=== PATIENT | female | born 1980 | race African-American/Black ===

== ENCOUNTER 2019-02-03 14:53 | Emergency (ER) | payer MEDICARE ==
[2019-02-03] MEDS ORDERED: NORMAL SALINE 1000 ML 1,000 ML IV ONE ×2 (15:14→17:23)
[2019-02-03] MEDS ORDERED: ACETAMINOPHEN 325 MG TABLET PO ONE (15:14)
--- NOTE | 2019-02-03 15:21 | ER Document Report ---
ED Medical Screen (RME) - General Chief Complaint: Nausea/Vomiting Stated Complaint: VOMITING,DIZZINESS,WEAKNESS Time Seen by Provider: 02/03/19 15:14 Mode of Arrival: Wheelchair Information source: Patient Notes: 38-year-old female presented to ED for abdominal pain nausea vomiting and a temperature of 95.1 rectally at this time. I have tried multiple times to get a oral temperature and it is 95 and below. The rectal temp was 95.1. Patient is alert oriented respirations regular and unlabored speaking in full sentences. She states she has been sick for about 3 or 4 days. She states she has been nausea and vomiting for 3 to 4 days. She states she does have a history of anemia adrenal insufficiency lupus diabetes she does have insulin with her low calcium bile duct stents gallbladder removal enlarged heart valve and a leaky heart valve not sure which and she does not smoke or drink but she does use marijuana. I have greeted and performed a rapid initial assessment of this patient. A comprehensive ED assessment and evaluation of the patient, analysis of test results and completion of medical decision making process will be conducted by an additional ED providers. Physical Exam - Vital signs Vitals: Temp Pulse Resp BP Pulse Ox 95.1 F L 84 18 97/67 L 100 02/03/19 15:00 02/03/19 15:00 02/03/19 15:00 02/03/19 15:00 02/03/19 15:00 Course - Vital Signs Vital signs: Temp Pulse Resp BP Pulse Ox 95.1 F L 84 18 97/67 L 100 02/03/19 15:00 02/03/19 15:00 02/03/19 15:00 02/03/19 15:00 02/03/19 15:00
--- NOTE | 2019-02-03 16:15 | ER Document Report ---
ED General - General Chief Complaint: Nausea/Vomiting Stated Complaint: VOMITING,DIZZINESS,WEAKNESS Time Seen by Provider: 02/03/19 15:14 Mode of Arrival: Wheelchair Notes: Patient is a 38-year-old female with multiple medical problems including Max's disease, type 1 diabetes mellitus that presents to the emergency department for chief complaint of nausea, vomiting, overall not feeling well. Patient states she is been having these symptoms for almost a week now, she did have a syncopal episode earlier today, so she decided come to the emergency department to be evaluated. She states she may have missed a few doses of her home medications including her insulin, and her hydrocortisone. She is not sure if her sugars been running high or not. She denies having any abdominal pain at this time, has been urinating more frequently and more thirsty but also did not have much of an appetite. Patient reports that she is in town visiting from [place], and she gets all of her care in [place]. Past Medical History: Adrenal insufficiency, type 1 diabetes Past Surgical History: Cholecystectomy, bile duct stent Social History: Denies current tobacco, alcohol or drug use. Family History: Reviewed and noncontributory for presenting illness Allergies: Reviewed, see documented allergy list. REVIEW OF SYSTEMS: Other than noted above, the 12 point review of systems was reviewed with the patient and were negative, all pertinent findings are included in the HPI. PHYSICAL EXAMINATION: Vital signs reviewed, nursing noted reviewed. GENERAL: Patient appears uncomfortable, but in no acute distress. HEAD: Atraumatic, normocephalic. EYES: Eyes appear normal, extraocular movements intact, sclera anicteric, conjunctiva are normal. ENT: nares patent, oropharynx clear without exudates. Moist mucous membranes. NECK: Normal range of motion, supple without lymphadenopathy LUNGS: Breath sounds clear to auscultation bilaterally and equal. No wheezes rales or rhonchi. HEART: Regular rate and rhythm without murmurs ABDOMEN: Soft, mild epigastric abdominal tenderness to palpation, normoactive karlie wel sounds. No rebound, guarding, or rigidity. No masses appreciated. EXTREMITIES: Nontender, good range of motion, no pitting or edema. NEUROLOGICAL: No focal neurological deficits. Moves all extremities spontaneously Motor and sensory grossly intact on exam. PSYCH: Normal mood, normal affect. SKIN: Warm, Dry, normal turgor, no rashes or lesions noted on exposed skin - Related Data Allergies/Adverse Reactions: acetaminophen Allergy (Verified 02/03/19 15:30) Past Medical History - General Information source: Patient - Social History Smoking Status: Never Smoker Frequency of alcohol use: Rare Drug Abuse: Marijuana Family History: Reviewed & Not Pertinent Patient has suicidal ideation: No Patient has homicidal ideation: No Renal/ Medical History: Denies: Hx Peritoneal Dialysis Physical Exam - Vital signs Vitals: Temp Pulse Resp BP Pulse Ox 95.1 F L 84 18 97/67 L 100 02/03/19 15:00 02/03/19 15:00 02/03/19 15:00 02/03/19 15:00 02/03/19 15:00 Course - Re-evaluation Re-evalutation: Patient seen and examined vital signs reviewed. Laboratory data and/or imaging were ordered as appropriate for the patient's presenting symptoms and complaint, with consideration of any critical or life threatening conditions that may be associated with their obtained history and exam as noted above. Patient was treated with IV fluid bolusing, and treated with IV insulin for her elevated blood sugar, her bicarb was normal, her anion gap was only 16, she was noted on her urine to have a nitrite positive urine with bacteria, concerning for urinary tract infection, was started on IV Rocephin for this. On repeat Accu-Chek, her blood sugar after fluids and insulin, had come down to 258, and she was overall feeling better, still had some mild nausea was given additional Zofran. Overall the patient was feeling much better, and I do feel that she is stable enough to be discharged home, I did give her stress dose steroids in the ED, I recommended that she continue her home hydrocortisone, and monitor her blood sugars, as they may increase during her acute infection, she is prescribed Cefdinir twice daily, for 7 days, to take for UTI and advised to follow-up with her primary care physician, and to make a phone call, if her blood sugars were elevated to the primary care, to adjust her insulin regimen. Evaluation was most consistent with UTI, hyperglycemia, dehydration, nausea and vomiting Results were discussed with the patient at this point, after careful consideration I feel that that patient can be discharged from the emergency department, the patient was educated treatments and reasons to return to the emergency department based on their presumed diagnosis as noted above, they were advised to followup with a primary care physician in 2-3 days. Patient was agreeable to plan of care. *Note is created using voice recognition software and may contain spelling, syntax or grammatical errors. Laboratory 02/03/19 02/03/19 02/03/19 16:21 16:21 16:21 WBC 4.2 RBC 3.66 L Hgb 9.6 L Hct 30.0 L MCV 82 MCH 26.4 L MCHC 32.1 RDW 14.5 H Plt Count 208 Lymph % (Auto) 30.7 [place] % (Auto) 2.8 L Eos % (Auto) 1.1 Baso % (Auto) 0.4 Absolute Neuts (auto) 2.7 Absolute Lymphs (auto) 1.3 Absolute Monos (auto) 0.1 Absolute Eos (auto) 0.0 Absolute Basos (auto) 0.0 Seg Neutrophils % 65.0 PT 12.5 INR 0.93 VBG pH VBG pCO2 VBG HCO3 VBG Base Excess Sodium 133.7 L Potassium 5.3 H Chloride 94 L Carbon Dioxide 24 Anion Gap 16 BUN 36 H Creatinine 1.15 Est GFR ( Amer) > 60 Est GFR (MDRD) Non-Af 53 L Glucose 598 H* POC Glucose Lactic Acid Calcium 9.7 Total Bilirubin 0.2 Direct Bilirubin 0.2 Neonat Total Bilirubin Not Reportable Neonat Direct Bilirubin Not Reportable Neonat Indirect Bili Not Reportable AST 19 ALT 14 Alkaline Phosphatase 272 H Total Protein 7.6 Albumin 3.8 TSH Free T4 Serum HCG, Qual Urine Color Urine Appearance Urine pH Ur Specific [place] Urine Protein Urine Glucose (UA) Urine Ketones Urine Blood Urine Nitrite Urine Bilirubin Urine Urobilinogen Ur Leukocyte Esterase Urine WBC (Auto) Urine RBC (Auto) Urine Bacteria (Auto) Squamous Epi Cells Auto Amorphous Sediment Auto Urine Mucus (Auto) Urine Ascorbic Acid 02/03/19 02/03/19 02/03/19 16:21 16:21 16:21 WBC RBC Hgb Hct MCV MCH MCHC RDW Plt Count Lymph % (Auto) [place] % (Auto) Eos % (Auto) Baso % (Auto) Absolute Neuts (auto) Absolute Lymphs (auto) Absolute Monos (auto) Absolute Eos (auto) Absolute Basos (auto) Seg Neutrophils % PT INR VBG pH 7.29 L VBG pCO2 55.3 VBG HCO3 25.7 VBG Base Excess -1.9 Sodium Potassium Chloride Carbon Dioxide Anion Gap BUN Creatinine Est GFR ( Amer) Est GFR (MDRD) Non-Af Glucose POC Glucose Lactic Acid 1.4 Calcium Total Bilirubin Direct Bilirubin Neonat Total Bilirubin Neonat Direct Bilirubin Neonat Indirect Bili AST ALT Alkaline Phosphatase Total Protein Albumin TSH Free T4 Serum HCG, Qual NEGATIVE Urine Color Urine Appearance Urine pH Ur Specific [place] Urine Protein Urine Glucose (UA) Urine Ketones Urine Blood Urine Nitrite Urine Bilirubin Urine Urobilinogen Ur Leukocyte Esterase Urine WBC (Auto) Urine RBC (Auto) Urine Bacteria (Auto) Squamous Epi Cells Auto Amorphous Sediment Auto Urine Mucus (Auto) Urine Ascorbic Acid 02/03/19 02/03/19 02/03/19 16:21 16:30 21:41 WBC RBC Hgb Hct MCV MCH MCHC RDW Plt Count Lymph % (Auto) [place] % (Auto) Eos % (Auto) Baso % (Auto) Absolute Neuts (auto) Absolute Lymphs (auto) Absolute Monos (auto) Absolute Eos (auto) Absolute Basos (auto) Seg Neutrophils % PT INR VBG pH VBG pCO2 VBG HCO3 VBG Base Excess Sodium Potassium Chloride Carbon Dioxide Anion Gap BUN Creatinine Est GFR ( Amer) Est GFR (MDRD) Non-Af Glucose POC Glucose 258 H Lactic Acid Calcium Total Bilirubin Direct Bilirubin Neonat Total Bilirubin Neonat Direct Bilirubin Neonat Indirect Bili AST ALT Alkaline Phosphatase Total Protein Albumin TSH 4.85 H Free T4 1.46 Serum HCG, Qual Urine Color YELLOW Urine Appearance SLIGHTLY-CLOUDY Urine pH 5.0 Ur Specific [place] 1.020 Urine Protein NEGATIVE Urine Glucose (UA) >=500 H Urine Ketones TRACE H Urine Blood SMALL H Urine Nitrite POSITIVE H Urine Bilirubin NEGATIVE Urine Urobilinogen NEGATIVE Ur Leukocyte Esterase NEGATIVE Urine WBC (Auto) 3 Urine RBC (Auto) 1 Urine Bacteria (Auto) 3+ Squamous Epi Cells Auto <1 Amorphous Sediment Auto TRACE Urine Mucus (Auto) RARE Urine Ascorbic Acid NEGATIVE Chest X-Ray 02/03/19 15:15 IMPRESSION: NO ACUTE RADIOGRAPHIC FINDING IN THE CHEST. - Vital Signs Vital signs: Temp Pulse Resp BP Pulse Ox 97.8 F 84 17 113/82 100 02/03/19 21:52 02/03/19 16:10 02/03/19 21:00 02/03/19 20:01 02/03/19 21:00 - Laboratory Result Diagrams: 02/03/19 16:21 02/03/19 16:21 Laboratory results interpreted by me: 02/03/19 02/03/19 02/03/19 16:21 16:21 16:21 RBC 3.66 L Hgb 9.6 L Hct 30.0 L MCH 26.4 L RDW 14.5 H [place] % (Auto) 2.8 L VBG pH 7.29 L Sodium 133.7 L Potassium 5.3 H Chloride 94 L BUN 36 H Est GFR (MDRD) Non-Af 53 L Glucose 598 H* POC Glucose Alkaline Phosphatase 272 H TSH Urine Glucose (UA) Urine Ketones Urine Blood Urine Nitrite 02/03/19 02/03/19 02/03/19 16:21 16:30 21:41 RBC Hgb Hct MCH RDW [place] % (Auto) VBG pH Sodium Potassium Chloride BUN Est GFR (MDRD) Non-Af Glucose POC Glucose 258 H Alkaline Phosphatase TSH 4.85 H Urine Glucose (UA) >=500 H Urine Ketones TRACE H Urine Blood SMALL H Urine Nitrite POSITIVE H Discharge - Discharge Clinical Impression: Hyperglycemia UTI (urinary tract infection) Qualifiers: Urinary tract infection type: site unspecified Hematuria presence: with hematuria Qualified Code(s): N39.0 - Urinary tract infection, site not specified; R31.9 - Hematuria, unspecified Condition: Stable Disposition: HOME, SELF-CARE Instructions: Urinary Tract Infection ([facility]) Additional Instructions: Please monitor your blood sugar at home, if it is elevated, please discuss this with your primary care physician regarding adjustment of your insulin regimen while being treated for urinary tract infection, please complete the entire course of antibiotics even if you are feeling better sooner, and please take the nausea medicine as directed, if you are having worsening symptoms or things are not improving despite treatment, please return to the emergency department to be reevaluated. Prescriptions: Cefdinir 300 mg PO BID #14 capsule Ondansetron [Zofran Odt 4 mg Tablet] 1 tab PO Q8H PRN #15 tab.rapdis PRN Reason: For Nausea/Vomiting Referrals: SELWYN ESTRADA MD [ACTIVE STAFF] - Follow up in 3-5 days
[2019-02-03] MEDS ORDERED: HYDROCORTISONE SOD SUCCINATE INJ/PF 100 MG/2 ML SDV IV ONE (16:26)
[2019-02-03] MEDS ORDERED: ONDANSETRON HCL INJ/PF 4 MG/2 ML SDV IV ONE ×2 (16:27→21:34)
--- NOTE | 2019-02-03 16:32 | RADIOLOGY REPORT (SQ) ---
EXAM DESCRIPTION: CHEST 2 VIEWS COMPLETED DATE/TIME: 02/03/2019 4:10 pm REASON FOR STUDY: sepsis COMPARISON: None. EXAM PARAMETERS: NUMBER OF VIEWS: two views TECHNIQUE: Digital Frontal and Lateral radiographic views of the chest acquired. RADIATION DOSE: NA LIMITATIONS: none FINDINGS: LUNGS AND PLEURA: No consolidation, pneumothorax or pleural effusion. MEDIASTINUM AND HILAR STRUCTURES: No masses or contour abnormalities. HEART AND VASCULAR STRUCTURES: Heart normal size. No evidence for failure. BONES: No acute findings. HARDWARE: None in the chest. IMPRESSION: NO ACUTE RADIOGRAPHIC FINDING IN THE CHEST. TECHNICAL DOCUMENTATION: JOB ID: [id number] 2010 [employer]- All Rights Reserved Reading location - IP/workstation name: [email or web address]
[2019-02-03 16:43] LABS: VENOUS BLOOD BASE EXCESS -1.9 mmol/L; VENOUS BLOOD HCO3 25.7 mmol/L (20-32); VENOUS BLOOD PCO2 55.3 mmHg (35-63); VENOUS BLOOD PH 7.29 (7.30-7.42)
[2019-02-03 16:45] LABS: ABSOLUTE LYMPHOCYTES (AUTO) 1.3 10^3/uL (0.5-4.7); ABSOLUTE MONOCYTES (AUTO) 0.1 10^3/uL (0.1-1.4); ABSOLUTE NEUT (AUTO) 2.7 10^3/uL (1.7-8.2); BASOPHILS % (AUTO) 0.4 % (0-2); EOSINOPHILS % (AUTO) 1.1 % (0-6); HEMOGLOBIN 9.6 g/dL (12.0-15.5); LYMPHOCYTES % (AUTO) 30.7 % (13-45); MEAN CORPUSCULAR HEMOGLOBIN 26.4 pg (27.0-33.4); MEAN CORPUSCULAR HGB CONC 32.1 g/dL (32.0-36.0); MEAN CORPUSCULAR VOLUME 82 fl (80-97); MONOCYTES % (AUTO) 2.8 % (3-13); PLATELET COUNT 208 10^3/uL (150-450); RED BLOOD COUNT 3.66 10^6/uL (3.72-5.28); RED CELL DISTRIBUTION WIDTH 14.5 % (11.5-14.0); TOTAL CELLS COUNTED % (AUTO) 100 %; WHITE BLOOD COUNT 4.2 10^3/uL (4.0-10.5)
[2019-02-03 16:50] LABS: INTERNATIONAL RATION (INR) 0.93; PROTHROMBIN TIME 12.5 SEC (11.4-15.4)
[2019-02-03 17:02] LABS: ALBUMIN 3.8 g/dL (3.5-5.0); ALKALINE PHOSPHATASE 272 U/L (38-126); ANION GAP 16 (5-19); ASPARTATE AMINO TRANSFERASE 19 U/L (14-36); BILIRUBIN,DIRECT 0.2 mg/dL (0.0-0.4); BILIRUBIN,TOTAL 0.2 mg/dL (0.2-1.3); BLOOD UREA NITROGEN 36 mg/dL (7-20); CALCIUM 9.7 mg/dL (8.4-10.2); CARBON DIOXIDE 24 mmol/L (22-30); CHLORIDE 94 mmol/L (98-107); POTASSIUM 5.3 mmol/L (3.6-5.0); TOTAL PROTEIN 7.6 g/dL (6.3-8.2)
[2019-02-03 17:11] LABS: GLUCOSE 598 mg/dL (75-110)
[2019-02-03] MEDS ORDERED: INSULIN REG, HUMAN 100 UNIT/ML 3 ML VIAL (PYX) IV ONE (17:24)
[2019-02-03 17:33] LABS: AMORPHOUS SEDIMENT,URINE TRACE /HPF; APPEARANCE,URINE SLIGHTLY-CLOUDY; BILIRUBIN,URINE NEGATIVE (NEGATIVE); COLOR,URINE YELLOW; GLUCOSE, URINE >=500 mg/dL (NEGATIVE); KETONES,URINE TRACE mg/dL (NEGATIVE); LEUKOCYTE ESTERASE,URINE NEGATIVE (NEGATIVE); NITRITE,URINE POSITIVE (NEGATIVE); PROTEIN,URINE NEGATIVE (NEGATIVE); UROBILINOGEN,URINE NEGATIVE mg/dL (<2.0)
[2019-02-03] MEDS ORDERED: CEFTRIAXONE 1 GM/D5W RTU 1 GM/50 ML RTUPB IV ONE (17:58)
[2019-02-03 20:05] LABS: FREE T4 (FREE THYROXINE) 1.46 ng/dL (0.78-2.19)
[2019-02-03 20:19] LABS: THYROID STIMULATING HORMONE 4.85 uIU/mL (0.47-4.68)
[2019-02-03] MEDS ORDERED: RINGERS SOLUTION,LACTATED 1,000 ML IV ONE (21:34)
[2019-02-03 23:30] VITALS: BP 118/83
--- NOTE | 2019-02-04 00:15 | EKG REPORT ---
SEVERITY:- NORMAL ECG - SINUS RHYTHM : Confirmed by: Chely Nevarez MD 04-Feb-2019 00:14:20
== END 2019-02-03 23:20 | disposition home or self-care (01) ==
LOC: ER 14:53
DX: N39.0 Urinary tract infection, site not specified (principal); E10.65 Type 1 diabetes mellitus with hyperglycemia; E86.0 Dehydration; R11.2 Nausea with vomiting, unspecified; R42 Dizziness and giddiness; R31.9 Hematuria, unspecified; R53.1 Weakness; Z90.49 Acquired absence of other specified parts of digestive tract; Z88.6 Allergy status to analgesic agent
CPT/HCPCS: 93005; 36415; 87040; 87086; 84439; 82962; 84443; 84703; 85025; 85610; 87088; 80053; 81001; 87186; 82803; 83605; 71046; 93010; J1720; A9270; J2405; J7030; J7120; J0696; 96361; 96365; 96375; 96376; 99284; J1815

== ENCOUNTER 2019-02-05 15:23 | Inpatient (IN) | payer MEDICARE ==
[2019-02-05] MEDS ORDERED: NORMAL SALINE 1000 ML 1,000 ML IV ONE ×3 (16:38→21:50)
--- NOTE | 2019-02-05 16:43 | ER Document Report ---
ED Medical Screen (RME) - General Mode of Arrival: Wheelchair Information source: Patient TRAVEL OUTSIDE OF THE U[place] IN LAST 30 DAYS: No <YESENIA MEZA - Last Filed: 02/05/19 20:56> <CAYDEN SOLIS - Last Filed: 02/06/19 14:48> - General Chief Complaint: Nausea Stated Complaint: NAUSEA,WEAKNESS Time Seen by Provider: 02/05/19 16:33 Notes: This 38-year-old female with history of lupus renal insufficiency and diabetes presents today for continued symptoms. She was evaluated 2 days ago in this emergency department with same symptoms. She was diagnosed with a UTI just picked up her antibiotics yesterday. She has had 2 doses of her antibiotics. Denies fever. She reports she has been having nausea vomiting diarrhea and passed out one time since she left here. She has not checked her blood glucose level recently because she has been vomiting. I have greeted and performed a rapid initial assessment of this patient. A comprehensive ED assessment and evaluation of the patient, analysis of test results and completion of the medical decision making process will be conducted by additional ED providers. Dictation of this chart was performed using voice recognition software; therefore, there may be some unintended grammatical errors. (YESENIA MEZA) - Related Data Allergies/Adverse Reactions: acetaminophen Allergy (Verified 02/05/19 15:24) Past Medical History - Social History Chew tobacco use (# tins/day): No Frequency of alcohol use: Rare Drug Abuse: Marijuana Endocrine Medical History: Reports: Hx Diabetes Mellitus Type 1 Renal/ Medical History: Denies: Hx Peritoneal Dialysis Past Surgical History: Reports: Hx Cholecystectomy - stent in bile duct <YESENIA MEZA - Last Filed: 02/05/19 20:56> Physical Exam - Vital signs Vitals: Pulse Resp BP Pulse Ox 86 16 84/55 L 96 02/05/19 15:39 02/05/19 15:39 02/05/19 15:39 02/05/19 15:39 Course - Laboratory Result Diagrams: 02/05/19 17:44 02/05/19 17:44 <YESENIA MEZA - Last Filed: 02/05/19 20:56> - Laboratory Result Diagrams: 02/06/19 07:19 02/06/19 07:19 <CAYDEN SOLIS - Last Filed: 02/06/19 14:48> - Re-evaluation Re-evalutation: 02/06/19 14:47 pt still weak, orthostatics positive despite 2 liters. will admit (CAYDEN SOLIS) - Vital Signs Vital signs: Temp Pulse Resp BP Pulse Ox 97.4 F 79 17 121/76 100 02/06/19 12:01 02/06/19 14:00 02/06/19 12:01 02/06/19 12:01 02/06/19 12:01 - Laboratory Laboratory results interpreted by me: 02/05/19 02/05/19 02/05/19 17:44 17:44 17:44 WBC 3.2 L RBC 3.52 L Hgb 9.4 L Hct 28.4 L MCH 26.8 L RDW 14.8 H VBG pH Sodium 135.6 L Glucose 329 H POC Glucose Hemoglobin A1c % Magnesium 1.2 L* Alkaline Phosphatase 176 H Albumin 3.3 L Urine Protein Urine Glucose (UA) Urine Ketones Urine Blood 02/05/19 02/05/19 02/05/19 17:44 17:57 18:34 WBC RBC Hgb Hct MCH RDW VBG pH 7.29 L Sodium Glucose POC Glucose 330 H Hemoglobin A1c % 12.1 H Magnesium Alkaline Phosphatase Albumin Urine Protein Urine Glucose (UA) Urine Ketones Urine Blood 02/05/19 02/05/19 02/05/19 20:04 21:03 23:28 WBC RBC Hgb Hct MCH RDW VBG pH Sodium Glucose POC Glucose 279 H 291 H Hemoglobin A1c % Magnesium Alkaline Phosphatase Albumin Urine Protein 30 H Urine Glucose (UA) >=500 H Urine Ketones 20 H Urine Blood SMALL H Doctor's Discharge <YESENIA MEZA - Last Filed: 02/05/19 20:56> <CAYDEN SOLIS - Last Filed: 02/06/19 14:48> - Discharge Clinical Impression: Dehydration, Hypomagnesemia, Syncope and collapse Hypotension Qualifiers: Hypotension type: unspecified hypotension type Qualified Code(s): I95.9 - Hypotension, unspecified Disposition: ADMITTED INPATIENT
[2019-02-05 18:05] LABS: ABSOLUTE EOSINOPHILS # (AUTO) 0.1 10^3/uL (0.0-0.6); ABSOLUTE LYMPHOCYTES (AUTO) 1.2 10^3/uL (0.5-4.7); ABSOLUTE MONOCYTES (AUTO) 0.1 10^3/uL (0.1-1.4); ABSOLUTE NEUT (AUTO) 1.9 10^3/uL (1.7-8.2); BASOPHILS % (AUTO) 0.4 % (0-2); EOSINOPHILS % (AUTO) 2.3 % (0-6); HEMATOCRIT 28.4 % (36.0-47.0); HEMOGLOBIN 9.4 g/dL (12.0-15.5); LYMPHOCYTES % (AUTO) 36.4 % (13-45); MEAN CORPUSCULAR HEMOGLOBIN 26.8 pg (27.0-33.4); MEAN CORPUSCULAR HGB CONC 33.1 g/dL (32.0-36.0); MEAN CORPUSCULAR VOLUME 81 fl (80-97); PLATELET COUNT 216 10^3/uL (150-450); RED BLOOD COUNT 3.52 10^6/uL (3.72-5.28); RED CELL DISTRIBUTION WIDTH 14.8 % (11.5-14.0); SEGMENTED NEUTROPHILS % (AUTO) 57.9 % (42-78); TOTAL CELLS COUNTED % (AUTO) 100 %; WHITE BLOOD COUNT 3.2 10^3/uL (4.0-10.5)
--- NOTE | 2019-02-05 18:09 | RADIOLOGY REPORT (SQ) ---
EXAM DESCRIPTION: CHEST SINGLE VIEW COMPLETED DATE/TIME: 02/05/2019 5:59 pm REASON FOR STUDY: cough COMPARISON: 02/03/2019 NUMBER OF VIEWS: One view. TECHNIQUE: Single frontal radiographic image of the chest acquired. LIMITATIONS: None. FINDINGS: LUNGS AND PLEURA: Stable appearance. MEDIASTINUM AND HILAR STRUCTURES: Stable heart size and mediastinal structures. HEART AND VASCULAR STRUCTURES: Stable appearance. SUPPORT DEVICES: Appropriate location without change. BONES: No acute findings. OTHER: No other significant finding. IMPRESSION: STABLE APPEARANCE OF THE CHEST. SUPPORT DEVICES UNCHANGED. TECHNICAL DOCUMENTATION: JOB ID: [id number] [employer]- All Rights Reserved Reading location - IP/workstation name: [email or web address]
[2019-02-05 18:31] LABS: ALBUMIN 3.3 g/dL (3.5-5.0); ALKALINE PHOSPHATASE 176 U/L (38-126); ANION GAP 9 (5-19); ASPARTATE AMINO TRANSFERASE 19 U/L (14-36); BILIRUBIN,DIRECT 0.2 mg/dL (0.0-0.4); BILIRUBIN,TOTAL 0.2 mg/dL (0.2-1.3); BLOOD UREA NITROGEN 15 mg/dL (7-20); CALCIUM 8.4 mg/dL (8.4-10.2); CARBON DIOXIDE 28 mmol/L (22-30); CHLORIDE 99 mmol/L (98-107); GLUCOSE 329 mg/dL (75-110); POTASSIUM 4.8 mmol/L (3.6-5.0)
[2019-02-05 18:48] LABS: VENOUS BLOOD BASE EXCESS -1.4 mmol/L; VENOUS BLOOD HCO3 25.9 mmol/L (20-32); VENOUS BLOOD PCO2 54.9 mmHg (35-63); VENOUS BLOOD PH 7.29 (7.30-7.42)
--- NOTE | 2019-02-05 18:58 | EKG REPORT ---
SEVERITY:- DEFECTIVE ECG - SINUS ARRHYTHMIA, RATE [id number] PROLONGED QT INTERVAL : Confirmed by: Michael Barba MD 05-Feb-2019 18:58:14
[2019-02-05 20:34] LABS: APPEARANCE,URINE CLEAR; BILIRUBIN,URINE NEGATIVE (NEGATIVE); COLOR,URINE YELLOW; GLUCOSE, URINE >=500 mg/dL (NEGATIVE); KETONES,URINE 20 mg/dL (NEGATIVE); LEUKOCYTE ESTERASE,URINE NEGATIVE (NEGATIVE); NITRITE,URINE NEGATIVE (NEGATIVE); PROTEIN,URINE 30 mg/dL (NEGATIVE); URINE SPECIFIC GRAVITY 1.016; UROBILINOGEN,URINE NEGATIVE mg/dL (<2.0)
--- NOTE | 2019-02-05 20:55 | ER Document Report ---
ED General - General Mode of Arrival: Wheelchair Information source: Patient TRAVEL OUTSIDE OF THE U.[place] IN LAST 30 DAYS: No <CAYDEN SOLIS - Last Filed: 02/05/19 21:54> <CINDY SHRESTHA - Last Filed: 02/05/19 23:05> - General Chief Complaint: Nausea Stated Complaint: NAUSEA,WEAKNESS Time Seen by Provider: 02/05/19 16:33 - HPI Notes: Patient complains of weakness nausea vomiting and lightheadedness. She also states she has had syncope. She states she was seen here several days ago with similar symptoms and was diagnosed with a urinary tract infection. She states she just picked up the antibiotics yesterday. She states she has been no better since she left. She also states that she has a type I diabetic and takes insulin. But she has not checked her blood sugars. She states the weakness has been severe and constant. It is worse with exertion and better with rest. There is no known radiation of the symptoms. She has had no fever. (CAYDEN SOLIS) - Related Data Allergies/Adverse Reactions: acetaminophen Allergy (Verified 02/05/19 15:24) Past Medical History - General Information source: Patient - Social History Smoking Status: Former Smoker Chew tobacco use (# tins/day): No Frequency of alcohol use: Rare Drug Abuse: Marijuana Family History: Reviewed & Not Pertinent Patient has suicidal ideation: No Patient has homicidal ideation: No Endocrine Medical History: Reports: Hx Diabetes Mellitus Type 1 Renal/ Medical History: Denies: Hx Peritoneal Dialysis Past Surgical History: Reports: Hx Cholecystectomy - stent in bile duct <CAYDEN SOLIS - Last Filed: 02/05/19 21:54> Review of Systems - Review of Systems Constitutional: Malaise, Weakness. denies: Chills, Fever Cardiovascular: denies: Chest pain, Dyspnea Respiratory: denies: Cough, Short of breath Neurological/Psychological: Weakness -: Yes All other systems reviewed and negative <CAYDEN SOLIS - Last Filed: 02/05/19 21:54> Physical Exam - Vital signs Interpretation: Normal, Hypotensive - Patient was normotensive when I arrived in the room - General General appearance: Appears well, Alert In distress: None - HEENT Head: Normocephalic, Atraumatic Eyes: Normal Pupils: PERRL Mucous membranes: Dry - Respiratory Respiratory status: No respiratory distress Chest status: Nontender Breath sounds: Normal Chest palpation: Normal - Cardiovascular Rhythm: Regular Heart sounds: Normal auscultation Murmur: No - Abdominal Inspection: Normal Distension: No distension Bowel sounds: Normal Tenderness: Nontender Organomegaly: No organomegaly - Back Back: Normal, Nontender - Extremities General upper extremity: Normal inspection, Nontender, Normal color, Normal ROM, Normal temperature General lower extremity: Normal inspection, Nontender, Normal color, Normal ROM, Normal temperature, Normal weight bearing. No: Marco's sign - Neurological Neuro grossly intact: Yes Cognition: Normal Orientation: AAOx4 [place] Coma Scale Eye Opening: Spontaneous Lisa Coma Scale Verbal: Oriented [place] Coma Scale Motor: Obeys Commands [place] Coma Scale Total: 15 Speech: Normal Motor strength normal: LUE, RUE, LLE, RLE Sensory: Normal - Psychological Associated symptoms: Normal affect, Normal mood - Skin Skin Temperature: Warm Skin Moisture: Dry Skin Color: Normal <CAYDEN SOLIS - Last Filed: 02/05/19 21:54> - Vital signs Vitals: Pulse Resp BP Pulse Ox 86 16 84/55 L 96 02/05/19 15:39 02/05/19 15:39 02/05/19 15:39 02/05/19 15:39 Course - Laboratory Result Diagrams: 02/05/19 17:44 02/05/19 17:44 - EKG Interpretation by Pr EKG shows normal: Sinus rhythm Rate: Normal - 93 Rhythm: NSR [place]/QRS: No: Right axis deviation, Left axis deviation <CAYDEN SOLIS - Last Filed: 02/05/19 21:54> - Laboratory Result Diagrams: 02/05/19 17:44 02/05/19 17:44 <CINDY SHRESTHA - Last Filed: 02/05/19 23:05> - Re-evaluation Re-evalutation: 02/05/19 20:57 At this time patient is better after receiving IV fluids. She is resting comfortably in the bed. She is no longer hypotensive. Abdomen is soft nontender and nondistended. 02/05/19 21:54 I just reevaluated patient. Her blood pressure is 83 when standing. I called and discussed the case with the hospitalist due to the fact that the patient is still hypotensive despite 2 L of fluids. He states he will come see the patient and is asked that I order a urine drug screen. (CAYDEN SOLIS) 02/05/19 23:04 Patient care assumed at 2200. Patient is aggressively rehydrated as her orthostatics showed blood pressure going from 110/53 laying down to 68/52 while standing. The patient also had a low magnesium of 1.2 and this was replaced IV. There is no significant acidosis but there is obvious ketosis with evidence for dehydration. The hospitalist agrees to admission of the patient. (CINDY SHRESTHA) - Vital Signs Vital signs: Temp Pulse Resp BP Pulse Ox 86 16 68/52 L 100 02/05/19 15:39 02/05/19 21:52 02/05/19 21:52 02/05/19 21:47 - Laboratory Laboratory results interpreted by me: 02/05/19 02/05/19 02/05/19 17:44 17:44 17:44 WBC 3.2 L RBC 3.52 L Hgb 9.4 L Hct 28.4 L MCH 26.8 L RDW 14.8 H VBG pH Sodium 135.6 L Glucose 329 H POC Glucose Hemoglobin A1c % Magnesium 1.2 L* Alkaline Phosphatase 176 H Albumin 3.3 L Urine Protein Urine Glucose (UA) Urine Ketones Urine Blood 02/05/19 02/05/19 02/05/19 17:44 17:57 18:34 WBC RBC Hgb Hct MCH RDW VBG pH 7.29 L Sodium Glucose POC Glucose 330 H Hemoglobin A1c % 12.1 H Magnesium Alkaline Phosphatase Albumin Urine Protein Urine Glucose (UA) Urine Ketones Urine Blood 02/05/19 02/05/19 20:04 21:03 WBC RBC Hgb Hct MCH RDW VBG pH Sodium Glucose POC Glucose 279 H Hemoglobin A1c % Magnesium Alkaline Phosphatase Albumin Urine Protein 30 H Urine Glucose (UA) >=500 H Urine Ketones 20 H Urine Blood SMALL H Discharge <CAYDEN SOLIS - Last Filed: 02/05/19 21:54> - Discharge Admitting Provider: Anthony (Hospitalist) Unit Admitted: Telemetry <CINDY SHRESTHA - Last Filed: 02/05/19 23:05> - Discharge Clinical Impression: Dehydration, Hypomagnesemia, Syncope and collapse Hypotension Qualifiers: Hypotension type: unspecified hypotension type Qualified Code(s): I95.9 - Hypotension, unspecified Disposition: ADMITTED INPATIENT
[2019-02-05] MEDS ORDERED: INSULIN REG, HUMAN 100 UNIT/ML 3 ML VIAL (PYX) IV ONE (21:10)
[2019-02-05] MEDS ORDERED: ACETAMINOPHEN 325 MG TABLET PO PRN (21:57)
[2019-02-05] MEDS ORDERED: MAG HYDROX/AL HYDROX/SIMETH SUSP 30 ML UDCUP PO PRN (21:57)
[2019-02-05] MEDS ORDERED: MAGNESIUM SULFATE/D5W 1 GM/100 ML RTUPB IV ONE (22:30)
[2019-02-05 22:31] LABS: URINE AMPHETAMINES SCREEN NEGATIVE; URINE BARBITURATES SCREEN NEGATIVE; URINE BENZODIAZEPINES SCREEN NEGATIVE; URINE COCAINE SCREEN NEGATIVE; URINE MARIJUANA (THC) SCREEN NEGATIVE; URINE METHADONE SCREEN NEGATIVE; URINE PHENCYCLIDINE SCREEN NEGATIVE
[2019-02-05] MEDS ORDERED: DEXTROSE 50%-WATER 25 GM/50 ML DISP.SYRIN IV PRN ×2 (22:42)
[2019-02-05] MEDS ORDERED: DEXTROSE 40% GEL 15 GM TUBE PO PRN ×2 (22:42)
[2019-02-05] MEDS ORDERED: GLUCAGON,HUMAN RECOMB 1 MG INJ IM PRN (22:42)
[2019-02-05] MEDS: HEPARIN SOD (PORCINE) 5,000 UNIT/ML 1 ML VIAL SUBCUT SCH (23:06)
[2019-02-06] MEDS: MAGNESIUM SULFATE/D5W 1 GM/100 ML RTUPB IV SCH ×2 (00:21→00:25)
--- NOTE | 2019-02-06 04:18 | PDOC H&P ---
History of Present Illness Admission Date/PCP: 02/05/19 23:34 Patient complains of: Generalized weakness History of Present Illness: IVETT GUZMAN is a 38 year old female with a past medical hair history of poorly controlled insulin-dependent diabetes and lupus. Patient is recently relocated to the area without primary care or insulin. She presents with 4 days of generalized weakness prompting evaluation in the emergency department 2 days ago diagnosed with UTI she receives IV antibiotic followed by Ceftin. She denies dysuria oliguria or polyuria. Her work-up is unremarkable with exception to orthostatic hypotension and an EKG showing prolonged QT interval. She is referred to the hospitalist for admission patient otherwise denies fever chills nausea vomiting, recent medication changes, admits noncompliance with diabetes. Past Medical History Endocrine Medical History: Reports: Diabetes Mellitus Type 1 Hematology: Reports: Anemia - hx of transfusions Past Surgical History Past Surgical History: Reports: Cholecystectomy - stent in bile duct Social History Information Source: Patient, [facility] Records Smoking Status: Former Smoker Last Time Smoked: 2006 Frequency of Alcohol Use: Rare Hx Recreational Drug Use: Yes Drugs: Marijuana - Advance Directive Resuscitation Status: Full Code Family History Family History: Hypertension Parental Family History Reviewed: Yes Children Family History Reviewed: Yes Sibling(s) Family History Reviewed.: Yes Medication/Allergy Home Medications: Cefdinir 300 mg PO BID #14 capsule 02/03/19 Ondansetron [Zofran Odt 4 mg Tablet] 1 tab PO Q8H PRN #15 tab.rapdis 02/03/19 Allergies/Adverse Reactions: acetaminophen Allergy (Verified 02/05/19 15:24) Review of Systems Constitutional: PRESENT: as per HPI, fatigue, weakness Eyes: ABSENT: visual disturbances Ears: ABSENT: hearing changes Cardiovascular: ABSENT: chest pain, dyspnea on exertion, edema, orthropnea, palpitations Respiratory: ABSENT: cough, hemoptysis Gastrointestinal: ABSENT: abdominal pain, constipation, diarrhea, hematemesis, hematochezia, nausea, vomiting Genitourinary: ABSENT: dysuria, hematuria Musculoskeletal: ABSENT: joint swelling Integumentary: ABSENT: rash, wounds Neurological: ABSENT: abnormal gait, abnormal speech, confusion, dizziness, focal weakness, syncope Psychiatric: ABSENT: anxiety, depression, homidical ideation, suicidal ideation Endocrine: ABSENT: cold intolerance, heat intolerance, polydipsia, polyuria Hematologic/Lymphatic: ABSENT: easy bleeding, easy bruising Physical Exam Vital Signs: Temp Pulse Resp BP Pulse Ox 97.6 F 74 15 107/63 100 02/06/19 01:09 02/06/19 02:00 02/06/19 01:09 02/06/19 01:09 02/06/19 01:09 Intake & Output 02/04/19 02/05/19 02/06/19 11:59 11:59 11:59 Intake Total 3200 Balance 3200 Weight 58.1 kg General appearance: PRESENT: no acute distress, cooperative, well-developed, well-nourished Head exam: PRESENT: atraumatic, normocephalic Eye exam: PRESENT: conjunctiva pink, EOMI, PERRLA. ABSENT: scleral icterus Ear exam: PRESENT: normal external ear exam Mouth exam: PRESENT: moist, tongue midline Neck exam: ABSENT: carotid bruit, JVD, lymphadenopathy, thyromegaly Respiratory exam: PRESENT: clear to auscultation agustina. ABSENT: rales, rhonchi, wheezes Cardiovascular exam: PRESENT: RRR. ABSENT: diastolic murmur, rubs, systolic murmur Pulses: PRESENT: normal dorsalis pedis pul Vascular exam: PRESENT: normal capillary refill GI/Abdominal exam: PRESENT: normal bowel sounds, soft. ABSENT: distended, guarding, mass, organolmegaly, rebound, tenderness Rectal exam: PRESENT: deferred Extremities exam: PRESENT: full ROM. ABSENT: calf tenderness, clubbing, pedal edema Neurological exam: PRESENT: alert, awake, oriented to person, oriented to place, oriented to time, oriented to situation, CN II-XII grossly intact. ABSENT: motor sensory deficit Psychiatric exam: PRESENT: appropriate affect, normal mood. ABSENT: homicidal ideation, suicidal ideation Skin exam: PRESENT: dry, intact, warm. ABSENT: cyanosis, rash Results Laboratory Results: 02/05/19 17:44 02/05/19 17:44 02/05/19 02/05/19 02/05/19 17:44 17:44 17:44 WBC 3.2 L RBC 3.52 L Hgb 9.4 L Hct 28.4 L MCV 81 MCH 26.8 L MCHC 33.1 RDW 14.8 H Plt Count 216 Seg Neutrophils % 57.9 VBG pH VBG pCO2 VBG HCO3 VBG Base Excess Sodium 135.6 L Potassium 4.8 Chloride 99 Carbon Dioxide 28 Anion Gap 9 BUN 15 Creatinine 0.97 Est GFR ( Amer) > 60 Glucose 329 H Lactic Acid 1.0 Calcium 8.4 Phosphorus Magnesium Total Bilirubin 0.2 AST 19 Alkaline Phosphatase 176 H Total Protein 7.0 Albumin 3.3 L TSH Urine Color Urine Appearance Urine pH Ur Specific [place] Urine Protein Urine Glucose (UA) Urine Ketones Urine Blood Urine Nitrite Ur Leukocyte Esterase Urine WBC (Auto) Urine RBC (Auto) 02/05/19 02/05/19 02/05/19 17:44 17:44 17:44 WBC RBC Hgb Hct MCV MCH MCHC RDW Plt Count Seg Neutrophils % VBG pH VBG pCO2 VBG HCO3 VBG Base Excess Sodium Potassium Chloride Carbon Dioxide Anion Gap BUN Creatinine Est GFR ( Amer) Glucose Lactic Acid Calcium Phosphorus 3.6 Magnesium 1.2 L* Total Bilirubin AST Alkaline Phosphatase Total Protein Albumin TSH 4.46 Urine Color Urine Appearance Urine pH Ur Specific [place] Urine Protein Urine Glucose (UA) Urine Ketones Urine Blood Urine Nitrite Ur Leukocyte Esterase Urine WBC (Auto) Urine RBC (Auto) 02/05/19 02/05/19 18:34 20:04 WBC RBC Hgb Hct MCV MCH MCHC RDW Plt Count Seg Neutrophils % VBG pH 7.29 L VBG pCO2 54.9 VBG HCO3 25.9 VBG Base Excess -1.4 Sodium Potassium Chloride Carbon Dioxide Anion Gap BUN Creatinine Est GFR ( Amer) Glucose Lactic Acid Calcium Phosphorus Magnesium Total Bilirubin AST Alkaline Phosphatase Total Protein Albumin TSH Urine Color YELLOW Urine Appearance CLEAR Urine pH 5.0 Ur Specific [place] 1.016 Urine Protein 30 H Urine Glucose (UA) >=500 H Urine Ketones 20 H Urine Blood SMALL H Urine Nitrite NEGATIVE Ur Leukocyte Esterase NEGATIVE Urine WBC (Auto) 1 Urine RBC (Auto) 1 Impressions: Chest X-Ray 02/05/19 17:39 IMPRESSION: STABLE APPEARANCE OF THE CHEST. SUPPORT DEVICES UNCHANGED. Assessment and Plan - Diagnosis (1) Orthostatic hypotension Is this a current diagnosis for this admission?: Yes Plan: Likely secondary to long QT, IV fluid challenge, magnesium sulfate IV, follow-up magnesium level (2) Long QT interval Is this a current diagnosis for this admission?: Yes Plan: Please see #1 (3) Dehydration Is this a current diagnosis for this admission?: Yes Plan: Please see #1 (4) Hypomagnesemia Is this a current diagnosis for this admission?: Yes Plan: Please see #1 (5) Insulin dependent diabetes mellitus Is this a current diagnosis for this admission?: Yes Plan: Anticipated poor control, not currently using insulin. Trial Lantus 15 units daily with Humalog sliding scale, follow-up A1c, education and discharge planning consult - Time Time Spent with patient: 35 or more minutes
[2019-02-06] MEDS: HEPARIN SOD (PORCINE) 5,000 UNIT/ML 1 ML VIAL SUBCUT SCH ×3 (05:37→21:52)
[2019-02-06] MEDS: INSULIN LISPRO 100 UNIT/ML 3 ML VIAL SUBCUT SCH ×3 (07:31→16:32)
[2019-02-06 07:58] LABS: ABSOLUTE EOSINOPHILS # (AUTO) 0.1 10^3/uL (0.0-0.6); ABSOLUTE LYMPHOCYTES (AUTO) 1.2 10^3/uL (0.5-4.7); ABSOLUTE MONOCYTES (AUTO) 0.1 10^3/uL (0.1-1.4); ABSOLUTE NEUT (AUTO) 1.7 10^3/uL (1.7-8.2); BASOPHILS % (AUTO) 0.4 % (0-2); EOSINOPHILS % (AUTO) 2.1 % (0-6); HEMATOCRIT 23.9 % (36.0-47.0); LYMPHOCYTES % (AUTO) 39.9 % (13-45); MEAN CORPUSCULAR HEMOGLOBIN 26.5 pg (27.0-33.4); MEAN CORPUSCULAR HGB CONC 33.1 g/dL (32.0-36.0); MEAN CORPUSCULAR VOLUME 80 fl (80-97); MONOCYTES % (AUTO) 3.4 % (3-13); PLATELET COUNT 191 10^3/uL (150-450); RED BLOOD COUNT 2.98 10^6/uL (3.72-5.28); RED CELL DISTRIBUTION WIDTH 15.3 % (11.5-14.0); SEGMENTED NEUTROPHILS % (AUTO) 54.2 % (42-78); TOTAL CELLS COUNTED % (AUTO) 100 %; WHITE BLOOD COUNT 3.1 10^3/uL (4.0-10.5)
[2019-02-06 08:05] LABS: HEMOGLOBIN 7.9 g/dL (12.0-15.5)
[2019-02-06 08:20] LABS: ANION GAP 6 (5-19); BLOOD UREA NITROGEN 13 mg/dL (7-20); CALCIUM 7.3 mg/dL (8.4-10.2); CARBON DIOXIDE 26 mmol/L (22-30); CHLORIDE 105 mmol/L (98-107); GLUCOSE 342 mg/dL (75-110); POTASSIUM 4.4 mmol/L (3.6-5.0)
[2019-02-06] MEDS: IBUPROFEN 800 MG TABLET PO PRN (08:42)
[2019-02-06] MEDS: ONDANSETRON HCL INJ/PF 4 MG/2 ML SDV IV PRN (08:42)
[2019-02-06] MEDS: INSULIN GLARGINE,HUM.REC.ANLOG 1,000 UNIT/10 ML VIAL SUBCUT SCH (10:28)
--- NOTE | 2019-02-06 18:04 | PDOC PROGRESS REPORT ---
Subjective Progress Note for:: 02/06/19 Reason For Visit: HYPOMAGNESEMIA Physical Exam Vital Signs: Temp Pulse Resp BP Pulse Ox 97.4 F 79 16 91/64 L 100 02/06/19 15:56 02/06/19 15:56 02/06/19 15:56 02/06/19 15:56 02/06/19 15:56 Intake & Output 02/05/19 02/06/19 02/07/19 06:59 06:59 06:59 Intake Total 3600 580 Balance 3600 580 Weight 58.1 kg General appearance: PRESENT: no acute distress, cooperative, disheveled Teeth exam: PRESENT: poor dentation Respiratory exam: PRESENT: clear to auscultation agustina, symmetrical, unlabored. ABSENT: accessory muscle use, chest wall tenderness, crackles, prolonged expiratory phas, rhonchi, tachypnea, wheezes Cardiovascular exam: PRESENT: RRR, +S1, +S2 Pulses: PRESENT: normal carotid pulses Vascular exam: PRESENT: normal capillary refill GI/Abdominal exam: PRESENT: normal bowel sounds, soft. ABSENT: distended, guarding, rebound, tenderness Extremities exam: ABSENT: clubbing, pedal edema Musculoskeletal exam: PRESENT: normal inspection. ABSENT: deformity Neurological exam: PRESENT: awake, oriented to person, oriented to place, oriented to situation Psychiatric exam: PRESENT: flat affect Skin exam: PRESENT: dry, warm Results Laboratory Results: 02/06/19 07:19 02/06/19 07:19 02/05/19 02/05/19 02/05/19 17:44 17:44 17:44 WBC 3.2 L RBC 3.52 L Hgb 9.4 L Hct 28.4 L MCV 81 MCH 26.8 L MCHC 33.1 RDW 14.8 H Plt Count 216 Seg Neutrophils % 57.9 VBG pH VBG pCO2 VBG HCO3 VBG Base Excess Sodium 135.6 L Potassium 4.8 Chloride 99 Carbon Dioxide 28 Anion Gap 9 BUN 15 Creatinine 0.97 Est GFR ( Amer) > 60 Glucose 329 H Lactic Acid 1.0 Calcium 8.4 Phosphorus Magnesium Total Bilirubin 0.2 AST 19 Alkaline Phosphatase 176 H Total Protein 7.0 Albumin 3.3 L TSH Urine Color Urine Appearance Urine pH Ur Specific [place] Urine Protein Urine Glucose (UA) Urine Ketones Urine Blood Urine Nitrite Ur Leukocyte Esterase Urine WBC (Auto) Urine RBC (Auto) 02/05/19 02/05/19 02/05/19 17:44 17:44 17:44 WBC RBC Hgb Hct MCV MCH MCHC RDW Plt Count Seg Neutrophils % VBG pH VBG pCO2 VBG HCO3 VBG Base Excess Sodium Potassium Chloride Carbon Dioxide Anion Gap BUN Creatinine Est GFR ( Amer) Glucose Lactic Acid Calcium Phosphorus 3.6 Magnesium 1.2 L* Total Bilirubin AST Alkaline Phosphatase Total Protein Albumin TSH 4.46 Urine Color Urine Appearance Urine pH Ur Specific [place] Urine Protein Urine Glucose (UA) Urine Ketones Urine Blood Urine Nitrite Ur Leukocyte Esterase Urine WBC (Auto) Urine RBC (Auto) 02/05/19 02/05/19 02/06/19 18:34 20:04 07:19 WBC 3.1 L RBC 2.98 L Hgb 7.9 L Hct 23.9 L MCV 80 MCH 26.5 L MCHC 33.1 RDW 15.3 H Plt Count 191 Seg Neutrophils % 54.2 VBG pH 7.29 L VBG pCO2 54.9 VBG HCO3 25.9 VBG Base Excess -1.4 Sodium Potassium Chloride Carbon Dioxide Anion Gap BUN Creatinine Est GFR ( Amer) Glucose Lactic Acid Calcium Phosphorus Magnesium Total Bilirubin AST Alkaline Phosphatase Total Protein Albumin TSH Urine Color YELLOW Urine Appearance CLEAR Urine pH 5.0 Ur Specific [place] 1.016 Urine Protein 30 H Urine Glucose (UA) >=500 H Urine Ketones 20 H Urine Blood SMALL H Urine Nitrite NEGATIVE Ur Leukocyte Esterase NEGATIVE Urine WBC (Auto) 1 Urine RBC (Auto) 1 02/06/19 02/06/19 07:19 07:19 WBC RBC Hgb Hct MCV MCH MCHC RDW Plt Count Seg Neutrophils % VBG pH VBG pCO2 VBG HCO3 VBG Base Excess Sodium 137.2 Potassium 4.4 Chloride 105 Carbon Dioxide 26 Anion Gap 6 BUN 13 Creatinine 0.76 Est GFR ( Amer) > 60 Glucose 342 H Lactic Acid Calcium 7.3 L Phosphorus Magnesium 1.8 Total Bilirubin AST Alkaline Phosphatase Total Protein Albumin TSH Urine Color Urine Appearance Urine pH Ur Specific [place] Urine Protein Urine Glucose (UA) Urine Ketones Urine Blood Urine Nitrite Ur Leukocyte Esterase Urine WBC (Auto) Urine RBC (Auto) Impressions: Chest X-Ray 02/05/19 17:39 IMPRESSION: STABLE APPEARANCE OF THE CHEST. SUPPORT DEVICES UNCHANGED. Assessment and Plan - Diagnosis (1) Hypomagnesemia Is this a current diagnosis for this admission?: Yes Plan: Now resolved (2) Long QT interval Is this a current diagnosis for this admission?: Yes Plan: Have corrected the electrolytes and her repeating her EKG to assess her QT interval. She is had no arrhythmia on telemetry. (3) Orthostatic hypotension Is this a current diagnosis for this admission?: Yes Plan: Improving with IV fluid - Time Time Spent with patient: 15-24 minutes
[2019-02-07] MEDS: IBUPROFEN 800 MG TABLET PO PRN (01:38)
[2019-02-07] MEDS: ONDANSETRON HCL INJ/PF 4 MG/2 ML SDV IV PRN ×4 (01:38→20:16)
[2019-02-07] MEDS: HEPARIN SOD (PORCINE) 5,000 UNIT/ML 1 ML VIAL SUBCUT SCH ×3 (05:40→21:15)
--- NOTE | 2019-02-07 07:31 | EKG REPORT ---
SEVERITY:- ABNORMAL ECG - SINUS RHYTHM ABNORMAL Q SUGGESTS ANTEROSEPTAL INFARCT : Confirmed by: Michael Barba MD 07-Feb-2019 07:31:08
[2019-02-07] MEDS: INSULIN LISPRO 100 UNIT/ML 3 ML VIAL SUBCUT SCH ×3 (08:40→17:07)
[2019-02-07] MEDS: INSULIN GLARGINE,HUM.REC.ANLOG 1,000 UNIT/10 ML VIAL SUBCUT SCH (11:41)
--- NOTE | 2019-02-07 18:24 | PDOC PROGRESS REPORT ---
Subjective Progress Note for:: 02/07/19 Subjective:: No adverse events overnight. No new complaints. Vital signs been stable. She is been eating at least some of her meals. Her blood sugars have been fluctuating since she was on insulin. She is not exactly sure what her insulin regimen is like at home, and we have had her on a relatively modest dose of Lantus here and it made her blood sugar dropped this afternoon. It somewhat puzzling that at 0630 this morning her blood sugar was 270 before breakfast and it was down to 55 this afternoon. Fortunately she was not symptomatic from it. Reason For Visit: HYPOMAGNESEMIA Physical Exam Vital Signs: Temp Pulse Resp BP Pulse Ox 97.2 F 81 16 108/76 100 02/07/19 11:33 02/07/19 16:07 02/07/19 16:07 02/07/19 16:07 02/07/19 16:07 Intake & Output 02/06/19 02/07/19 02/08/19 06:59 06:59 06:59 Intake Total 3600 1080 360 Balance 3600 1080 360 Weight 58.1 kg 69.1 kg General appearance: PRESENT: no acute distress, cooperative, disheveled Teeth exam: PRESENT: poor dentation Respiratory exam: PRESENT: clear to auscultation agustina, symmetrical, unlabored. ABSENT: accessory muscle use, chest wall tenderness, crackles, prolonged expiratory phas, rhonchi, tachypnea, wheezes Cardiovascular exam: PRESENT: RRR, +S1, +S2 Pulses: PRESENT: normal carotid pulses Vascular exam: PRESENT: normal capillary refill GI/Abdominal exam: PRESENT: normal bowel sounds, soft. ABSENT: distended, guarding, rebound, tenderness Extremities exam: ABSENT: clubbing, pedal edema Musculoskeletal exam: PRESENT: normal inspection. ABSENT: deformity Neurological exam: PRESENT: awake, oriented to person, oriented to place, oriented to situation Psychiatric exam: PRESENT: flat affect Skin exam: PRESENT: dry, warm Results Laboratory Results: 02/06/19 07:19 02/06/19 07:19 02/05/19 20:04 Catheterized Urine Urine Culture - Final NO GROWTH 2 DAYS Impressions: Chest X-Ray 02/05/19 17:39 IMPRESSION: STABLE APPEARANCE OF THE CHEST. SUPPORT DEVICES UNCHANGED. Assessment and Plan - Diagnosis (1) Hypomagnesemia Is this a current diagnosis for this admission?: Yes Plan: Resolved (2) Long QT interval Is this a current diagnosis for this admission?: Yes Plan: Resolved (3) Orthostatic hypotension Is this a current diagnosis for this admission?: Yes Plan: Her orthostatics were positive again today. We will give her some more IV fluids and repeat them tomorrow. (4) Insulin dependent diabetes mellitus Is this a current diagnosis for this admission?: Yes Plan: Uncontrolled. She was in the 300s when she came in. We put her on a modest dose of Lantus plus a sliding scale, and its managed to make her sugars drop below at times. I took her off the Lantus and just have her on a sliding scale for now. - Time Time Spent with patient: 15-24 minutes
[2019-02-07] MEDS ORDERED: HYDROCORTISONE SOD SUCCINATE INJ/PF 100 MG/2 ML SDV IV ONE (20:34)
[2019-02-07] MEDS: HYDROCORTISONE SOD SUCCINATE INJ/PF 100 MG/2 ML SDV IV SCH (23:24)
[2019-02-08] MEDS: ONDANSETRON HCL INJ/PF 4 MG/2 ML SDV IV PRN ×3 (04:14→17:21)
[2019-02-08] MEDS: HEPARIN SOD (PORCINE) 5,000 UNIT/ML 1 ML VIAL SUBCUT SCH ×3 (06:06→22:00)
[2019-02-08] MEDS: HYDROCORTISONE SOD SUCCINATE INJ/PF 100 MG/2 ML SDV IV SCH (06:15)
[2019-02-08] MEDS: INSULIN LISPRO 100 UNIT/ML 3 ML VIAL SUBCUT SCH ×3 (07:02→17:18)
[2019-02-08] MEDS ORDERED: HYDROCORTISONE 10 MG TABLET PO SCH ×2 (10:00→18:00)
[2019-02-08] MEDS: IBUPROFEN 800 MG TABLET PO PRN (17:25)
--- NOTE | 2019-02-08 17:31 | PDOC PROGRESS REPORT ---
Subjective Progress Note for:: 02/08/19 Subjective:: No adverse events overnight. She told the overnight team that she takes hydrocortisone at home for adrenal insufficiency. She received some IV Solu- Cortef, and while her blood pressure has improved today, her blood sugars have been substantially elevated. Otherwise she is felt fine. Reason For Visit: HYPOMAGNESEMIA Physical Exam Vital Signs: Temp Pulse Resp BP Pulse Ox 98.4 F 90 16 150/86 H 100 02/08/19 15:00 02/08/19 15:00 02/08/19 15:00 02/08/19 15:00 02/08/19 15:00 Intake & Output 02/07/19 02/08/19 02/09/19 06:59 06:59 06:59 Intake Total 3675 378 9498 Output Total 1301 400 Balance 1080 -941 800 Weight 69.1 kg 55.9 kg General appearance: PRESENT: no acute distress, cooperative, disheveled Teeth exam: PRESENT: poor dentation Respiratory exam: PRESENT: clear to auscultation agustina, symmetrical, unlabored. ABSENT: accessory muscle use, chest wall tenderness, crackles, prolonged expiratory phas, rhonchi, tachypnea, wheezes Cardiovascular exam: PRESENT: RRR, +S1, +S2 Pulses: PRESENT: normal carotid pulses Vascular exam: PRESENT: normal capillary refill GI/Abdominal exam: PRESENT: normal bowel sounds, soft. ABSENT: distended, guarding, rebound, tenderness Extremities exam: ABSENT: clubbing, pedal edema Musculoskeletal exam: PRESENT: normal inspection. ABSENT: deformity Neurological exam: PRESENT: awake, oriented to person, oriented to place, oriented to situation Psychiatric exam: PRESENT: flat affect Skin exam: PRESENT: dry, warm Results Laboratory Results: 02/06/19 07:19 02/06/19 07:19 Impressions: Chest X-Ray 02/05/19 17:39 IMPRESSION: STABLE APPEARANCE OF THE CHEST. SUPPORT DEVICES UNCHANGED. Assessment and Plan - Diagnosis (1) Hypomagnesemia Is this a current diagnosis for this admission?: Yes Plan: Resolved (2) Long QT interval Is this a current diagnosis for this admission?: Yes Plan: Resolved (3) Orthostatic hypotension Is this a current diagnosis for this admission?: Yes Plan: Likely has a result of some dehydration but also because she has not taken her p.o. hydrocortisone a few days. Since she is gotten some hydrocortisone IV, we will repeat her orthostatics. Cautioned her on position changes. (4) Insulin dependent diabetes mellitus Is this a current diagnosis for this admission?: Yes Plan: Were having to ezekiel after her blood sugars little bit today because of the IV steroids. They have been trending down as a day is gone on. (5) Adrenal insufficiency Is this a current diagnosis for this admission?: Yes Plan: She got some high doses of IV Solu-Cortef, so we are going to hold any p.o. steroids today and resume her usual dose tomorrow of 10 mg in the morning and 5 mg in the afternoon. - Time Time Spent with patient: 15-24 minutes
[2019-02-09] MEDS: HEPARIN SOD (PORCINE) 5,000 UNIT/ML 1 ML VIAL SUBCUT SCH (05:22)
[2019-02-09] MEDS: ONDANSETRON HCL INJ/PF 4 MG/2 ML SDV IV PRN (08:03)
[2019-02-09] MEDS: INSULIN LISPRO 100 UNIT/ML 3 ML VIAL SUBCUT SCH ×2 (08:03→13:03)
[2019-02-09] MEDS ORDERED: INSULIN GLARGINE,HUM.REC.ANLOG 1,000 UNIT/10 ML VIAL SUBCUT SCH (10:00)
[2019-02-09] MEDS ORDERED: HYDROCORTISONE 10 MG TABLET PO SCH ×2 (10:00→18:00)
[2019-02-09 13:06] VITALS: BP 107/69
--- NOTE | 2019-02-09 16:11 | PDOC DISCHARGE SUMMARY ---
General - Admit/Disc Date/PCP Admission Date/Primary Care Provider: 02/06/19 15:56 Discharge Date: 02/09/19 - Discharge Diagnosis (1) Hypomagnesemia Is this a current diagnosis for this admission?: Yes Summary: Resolved with vitamin supplementation (2) Long QT interval Is this a current diagnosis for this admission?: Yes Summary: Due to her hypomagnesemia, resolved after magnesium administration (3) Orthostatic hypotension Is this a current diagnosis for this admission?: Yes Summary: She was dehydrated, but she also has a history of adrenal insufficiency and had not been taking her hydrocortisone. We gave her some IV fluids and started back on her hydrocortisone. (4) Insulin dependent diabetes mellitus Is this a current diagnosis for this admission?: Yes Summary: Her blood sugars were labile, and she got some IV Solu-Cortef which made her hyperglycemic. We finally got her insulin schedule figured out and got her on an appropriate dose of her oral hydrocortisone and her blood sugar stabilized. (5) Adrenal insufficiency Is this a current diagnosis for this admission?: Yes Summary: She initially had a large dose of IV Solu-Cortef, but will resume her oral hydrocortisone when she is at home. - Additional Information Resuscitation Status: Full Code Discharge Diet: Diabetic Discharge Activity: Activity As Tolerated, No Driving History of Present Illness History of Present Illness: IVETT GUZMAN is a 38 year old female with a past medical hair history of poorly controlled insulin-dependent diabetes and lupus. Patient is recently relocated to the area without primary care or insulin. She presents with 4 days of generalized weakness prompting evaluation in the emergency department 2 days ago diagnosed with UTI she receives IV antibiotic followed by Ceftin. She denies dysuria oliguria or polyuria. Her work-up is unremarkable with exception to orthostatic hypotension and an EKG showing prolonged QT interval. She is referred to the hospitalist for admission patient otherwise denies fever chills nausea vomiting, recent medication changes, admits noncompliance with diabetes. Hospital Course Hospital Course: We will give her some IV fluids and some IV magnesium and her QT interval corrected. She has some orthostatic hypotension which corrected after she got some IV fluids and we got her back on her hydrocortisone. Her blood sugars were somewhat labile after she had an IV dose of Solu-Cortef, but only put her back on her oral hydrocortisone she was a little bit easier to manage. She will resume her usual home medications which she apparently had not been taking for some reason she will not admit to. She is from [place] and is returning there next week and will follow up with her primary care provider at that time. Her labs and examination were reassuring and she was discharged in good condition. Physical Exam Vital Signs: Temp Pulse Resp BP Pulse Ox 97.4 F 82 16 150/86 H 100 02/09/19 12:47 02/09/19 12:47 02/09/19 12:47 02/09/19 12:47 02/09/19 12:47 Intake & Output 02/08/19 02/09/19 02/10/19 06:59 06:59 06:59 Intake Total 360 2080 Output Total 1301 1300 Balance -941 780 Weight 55.9 kg 55.6 kg General appearance: PRESENT: no acute distress, cooperative, disheveled Teeth exam: PRESENT: poor dentation Respiratory exam: PRESENT: clear to auscultation agustina, symmetrical, unlabored. ABSENT: accessory muscle use, chest wall tenderness, crackles, prolonged expiratory phas, rhonchi, tachypnea, wheezes Cardiovascular exam: PRESENT: RRR, +S1, +S2 Pulses: PRESENT: normal carotid pulses Vascular exam: PRESENT: normal capillary refill GI/Abdominal exam: PRESENT: normal bowel sounds, soft. ABSENT: distended, guarding, rebound, tenderness Extremities exam: ABSENT: clubbing, pedal edema Musculoskeletal exam: PRESENT: normal inspection. ABSENT: deformity Neurological exam: PRESENT: awake, oriented to person, oriented to place, oriented to situation Psychiatric exam: PRESENT: flat affect Skin exam: PRESENT: dry, warm Results Laboratory Results: 02/06/19 07:19 02/06/19 07:19 Impressions: Chest X-Ray 02/05/19 17:39 IMPRESSION: STABLE APPEARANCE OF THE CHEST. SUPPORT DEVICES UNCHANGED. Qualifiers - * PATIENT BEING DISCHARGED WITH ANY OF THE FOLLOWING DIAGNOSIS: No Acute Heart Failure - Is this a Heart Failure Patient?: No Plan Time Spent: Greater than 30 Minutes
== END 2019-02-09 14:45 | disposition home or self-care (01) | DRG 641 ==
LOC: ER 15:23 → EH 23:34 → 4S 02-06 01:09 → OBSVTOIN 02-06 15:56
PROVIDERS: ADMIT Internal Medicine; ATTEND Internal Medicine
DX: E83.42 Hypomagnesemia (principal); N39.0 Urinary tract infection, site not specified; E27.40 Unspecified adrenocortical insufficiency; I45.81 Long QT syndrome; I95.1 Orthostatic hypotension; E10.65 Type 1 diabetes mellitus with hyperglycemia; D64.9 Anemia, unspecified; E86.0 Dehydration; Z79.4 Long term (current) use of insulin; Z91.19 Patient's noncompliance with other medical treatment and regimen; Z87.891 Personal history of nicotine dependence; Z79.899 Other long term (current) drug therapy; Z88.6 Allergy status to analgesic agent; Z82.49 Family history of ischemic heart disease and other diseases of the circulatory system
CPT/HCPCS: 36415; 71045; 80048; 80053; 80307; 81001; 81025; 82533; 82803; 82962; 83036; 83605; 83735; 84100; 84443; 85025; 87040; 87086; 93005; 93010; 94799; 96361; 96365; 96372; 99284; G0378; J1644; J1720; J1815; J2405; J3475; J3490; J7030